=== PATIENT | female | born 1965 | race Caucasian/White ===

== ENCOUNTER → 2022-08-19 15:00 | Outpatient (BNVA) | payer OTHER, SELFPAY | PROVIDERS: PCP Internal Medicine; Visit Provider Nurse Practitioner Family | DX: G47.33 Obstructive sleep apnea (adult) (pediatric) (principal); R06.83 Snoring; R40.0 Somnolence; Z99.89 Dependence on other enabling machines and devices | CPT/HCPCS: 99202 ==